=== PATIENT | male | born 1960 | race Caucasian/White ===

== ENCOUNTER 2017-05-06 09:51 | Emergency (ER) | payer OTHER ==
[~2017-05-06] VITALS: Ht 180.3 cm; Wt 110.5 kg
[~2017-05-06 09:51] MED LIST: ACTUNK PO; DBT/5 PO; IBUP-103 PO; METF1000 PO; METF1TAB53 PO
[2017-05-06 10:07] VITALS: TEMP 36.6; Ht 180.3 cm; Wt 110.5 kg
[2017-05-06 10:50] LABS: BASO % 0.5 %; BASO ABS # 0.03 K/uL (0-0.2); COMPLETE YES; EOS % 3.3 %; IG% 0.2 %; LYMPH % 18.4 %; LYMPH ABS # 1.13 K/uL (1.2-3.4); MEAN CELL VOLUME 84.5 fL (80-100); MEAN CORPUSCULAR HEMOGLOBIN 28.7 pg (25-34); MEAN PLATELET VOLUME 10.4 fL (7.4-10.4); MONO % 12.7 %; NEUT % 64.9 %; PLATELET COUNT 158 K/uL (130-400); RED BLOOD COUNT 4.14 M/uL (4.7-6.1); WHITE BLOOD COUNT 6.14 K/uL (4.8-10.8)
[2017-05-06 11:04] LABS: PARTIAL THROMBOPLASTIN RATIO 0.9; PROTHROMBIN TIME (PATIENT) 10.6 SECONDS (9.0-12.0)
[2017-05-06] MEDS ORDERED: METF-841 PO (11:13)
[2017-05-06] MEDS ORDERED: AMR2 PO (11:13)
[2017-05-06] MEDS ORDERED: NTRGSL/4 UT (11:13)
[2017-05-06] MEDS ORDERED: ATOR-24 PO (11:13)
[2017-05-06] MEDS ORDERED: CLOP1TAB15 PO (11:13)
[2017-05-06] MEDS ORDERED: METO1TAB66 PO (11:13)
[2017-05-06] MEDS ORDERED: LISI-725 PO (11:13)
[2017-05-06] MEDS ORDERED: ASPI81TA28 PO (11:13)
[2017-05-06] MEDS ORDERED: PANT40TA PO (11:13)
[2017-05-06] MEDS ORDERED: DOXA-22 PO (11:13)
[2017-05-06] MEDS ORDERED: FURO-85 PO (11:13)
[2017-05-06 11:18] LABS: BUN/CREATININE RATIO 15.4 (10-20); CALCIUM 9.4 mg/dl (8.5-10.1); CREATININE 1.6 mg/dl (0.60-1.40); POTASSIUM 4.2 mmol/L (3.5-5.1)
--- NOTE | 2017-05-06 13:01 | DIAGNOSTIC IMAGING REPORT ---
RIGHT LOWER EXTREMITY VENOUS DOPPLER CLINICAL HISTORY: Right leg edema and swelling. COMPARISON STUDY: No previous studies for comparison. TECHNIQUE: Sonography of the deep venous system of the right lower extremity was performed. Compression and augmentation were evaluated. FINDINGS: The common femoral, superficial femoral and popliteal veins were compressible. Augmentation was normal. Flow was shown within the deep calf vessels. Note was made of a prominent 4.1 x 1.3 x 2.2 cm right groin node. This node is elongated and contains a fatty hilum. This is likely benign. IMPRESSION: 1. No evidence of deep venous thrombus within the right lower extremity. 2. Prominent right inguinal lymph node which has benign imaging characteristics. Electronically signed by: Jeevan Workman M.D. 05/06/2017 1:00 PM Dictated Date/Time: 05/06/2017 12:58 PM
[2017-05-06] MEDS ORDERED: CEPH500C PO (15:03)
[2017-05-06] MEDS ORDERED: CEPHALEXIN MONOHYDRATE 250 MG CAP PO ONE (15:15)
[2017-05-06 15:22] VITALS: BP 149/74; PULSE 71; O2SAT 96
--- NOTE | 2017-05-06 18:03 | EMERGENCY ROOM VISIT NOTE ---
History First contact with patient: 10:11 Chief Complaint: LEG PAIN,LEG INJURY Stated Complaint: LEG PAIN AND SWELLING AND HEADACHE History of Present Illness The patient is a 56 year old white male who presents to the Emergency Room with multiple complaints. First complaint is of right lower leg swelling and redness that developed overnight. He states he normally has swollen lower extremities. He states the leg was very very tight on and Monday. There was no redness until this morning. He has a distant history of cellulitis in the left leg but none in the right. He also notes a small area of redness on the inner upper thigh. He denies any known injury, insect bite, or rash. He also complains of intermittent dizziness and fatigue. This has been present for several weeks. He notes an intermittent headache that starts in the posterior neck and wraps to the crown of his head. There is a history of headaches but these are of different pattern. He denies any change in vision. The dizziness occurs intermittently and without warning. 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 He also had one episode while walking into the ED earlier today. It is currently resolved. He has a history of 3 previous MIs. He denies any chest pain, shortness of breath, or radiculopathy to the arm. He was at [facility] on for evaluation of his symptoms, but states they did not do much of a workup. He states his right leg was ignored. He states they did do a CAT scan of his abdomen because he had flank pain. The CT was reportedly normal. He also states that blood work was done and it was noticed that he had some renal insufficiency. He is a diabetic. He has not seen his PCP. His accompanies him today. Review of Systems REVIEW OF SYSTEM: HEENT: No visual problems, hearing loss, or tinnitus. There is no difficulty swallowing and no oral lesions are present. LYMPH: No adenopathy. PULMONARY: No cough, shortness of breath, sputum production or hemoptysis. CARDIOVASCULAR: No chest pain, palpitations, shortness of breath or peripheral edema. GASTROINTESTINAL: No diarrhea, constipation, nausea, vomiting, or abdominal pain. GENITOURINARY: No dysuria, frequency, urgency or nocturia. NEUROLOGIC: No weakness, muscle tenderness, epilepsy or history of neurological problems. MUSCULOSKELETAL: No history of joint tenderness/swelling. No history of arthritis or arthralgias. SKIN: No rashes or lesions. History of cellulitis to the left leg. PSYCHIATRIC: No history of depression or mental illness. ENDOCRINE: No history of thyroid disorders, or abnormal hair growth. Past Medical/Surgical History Previous surgeries: Heart catheterization Medical history: Significant for previous MIs, CAD, history of sinusitis. Family History Noncontributory. Social History Smoking Status: Never Smoker Smokeless Tobacco Use: No Alcohol Use: none Drug Use: none Marital Status: Housing Status: lives with family Occupation Status: employed Current/Historical Medications Scheduled Aspirin (Aspirin Ec), 81 MG PO QAM Atorvastatin (Lipitor), 40 MG PO QPM Cephalexin Monohydrate (Keflex), 500 MG PO QID Clopidogrel (Plavix), 75 MG PO QAM Doxazosin Mesylate (Doxazosin), 4 MG PO QPM Furosemide (Lasix), 60 MG PO QAM Glimepiride (Glimepiride), 2 MG PO BID Lisinopril (Zestril), 20 MG PO BID Metformin HCl (Metformin HCl ER), 1,000 MG PO BID Metoprolol Succinate (Toprol Xl), 50 MG PO QAM Nitroglycerin (Nitrostat), 0.4 MG UT PRN Pantoprazole (Protonix), 40 MG PO QPM Allergies Coded Allergies: Codeine (Verified Allergy, Unknown, ., 01/05/17) Physical Exam Vital Signs Date Time Temp Pulse Resp B/P (MAP) Pulse Ox O2 Delivery O2 Flow Rate FiO2 05/06/17 15:22 71 16 149/74 96 05/06/17 14:34 60 16 169/75 95 Room Air 05/06/17 13:07 60 05/06/17 12:13 59 18 145/75 95 Room Air 05/06/17 10:43 61 05/06/17 10:42 61 16 152/86 95 Room Air 05/06/17 10:07 36.6 67 18 166/88 96 Room Air Pain Rating (0-10): 6.0 Physical Exam Gen.: Well-developed, well-nourished, middle-aged white male, who looks older than his stated age. Sitting on a bed. Alert and oriented. Skin:Warm and dry with good turgor. He appears mildly pale. No ecchymosis. There is erythema and a few punctate petechial areas on his right lower leg. It extends from his ankle to his knee. It extends just proximal to the knee on the medial aspect. Moderate warmth. Mild tender to touch. No palpable cord. The patient is not diaphoretic. No abrasions. No visible open areas on the lower leg. 2+ peripheral edema in the right leg, 1+ peripheral edema in the left leg. HEENT: Normocephalic atraumatic. Eyes PERRLA, EOMI. No conjunctiva or scleral injection. Ears TMs intact bilaterally with good light reflexes. No erythema or bulging. No hemotympanum. Canals are patent. Nares patent bilaterally without turbinate enlargement. No significant drainage. No epistaxis. Heart: Heart RRR. No MGR. Peripheral pulses are 1+ in the ankles. Lungs: Lungs are clear to auscultation. No crackles rhonchi or wheezing. Good air movement. The patient is able to take a deep breath. Abdomen: Abdomen was inspected, auscultated, and palpated. Bowel sounds present x 4. Soft, nontender to palpation. Musculoskeletal: Patient has discomfort with palpation over the trapezius muscles bilaterally. No pain with palpation over his cervical spine or thoracic spine. Intact range of motion for rotation as well as lateral flexion to the neck. Triggerpoints are palpable in the left trapezius. No triggerpoints in the right trapezius. Lower extremities have intact motion at the hips, knees, and ankles. Neurologic: Cranial nerves II through XII are intact. Negative Hallpike maneuver. Normal Ector testing. Gross sensation is intact across both lower extremities by soft touch. Medical Decision & Procedures ER Provider Diagnostic Interpretation: Ultrasound obtained today of the right lower extremity was read by radiology as negative for DVT. There is some lymph node enlargement proximally. EKG obtained today shows a normal sinus rhythm with a rate of 60. No acute ST or T-wave changes. This was reviewed with Dr. lacey. Laboratory Results 05/06/17 10:35 Red Blood Count 4.14, Mean Corpuscular Volume 84.5, Mean Corpuscular Hemoglobin 28.7, Mean Corpuscular Hemoglobin Concent 34.0, Mean Platelet Volume 10.4, Neutrophils (%) (Auto) 64.9, Lymphocytes (%) (Auto) 18.4, Monocytes (%) (Auto) 12.7, Eosinophils (%) (Auto) 3.3, Basophils (%) (Auto) 0.5, Neutrophils # (Auto ) 3.99, Lymphocytes # (Auto) 1.13, Monocytes # (Auto) 0.78, Eosinophils # (Auto ) 0.20, Basophils # (Auto) 0.03 05/06/17 10:35 Test 05/06/17 10:35 White Blood Count 6.14 K/uL (4.8-10.8) Red Blood Count 4.14 M/uL (4.7-6.1) Hemoglobin 11.9 g/dL (14.0-18.0) Hematocrit 35.0 % (42-52) Mean Corpuscular Volume 84.5 fL (80-100) Mean Corpuscular Hemoglobin 28.7 pg (25-34) Mean Corpuscular Hemoglobin Concent 34.0 g/dl (32-36) Platelet Count 158 K/uL (130-400) Mean Platelet Volume 10.4 fL (7.4-10.4) Neutrophils (%) (Auto) 64.9 % Lymphocytes (%) (Auto) 18.4 % Monocytes (%) (Auto) 12.7 % Eosinophils (%) (Auto) 3.3 % Basophils (%) (Auto) 0.5 % Neutrophils # (Auto) 3.99 K/uL (1.4-6.5) Lymphocytes # (Auto) 1.13 K/uL (1.2-3.4) Monocytes # (Auto) 0.78 K/uL (0.11-0.59) Eosinophils # (Auto) 0.20 K/uL (0-0.5) Basophils # (Auto) 0.03 K/uL (0-0.2) RDW Standard Deviation 38.8 fL (36.4-46.3) RDW Coefficient of Variation 12.7 % (11.5-14.5) Immature Granulocyte % (Auto) 0.2 % Immature Granulocyte # (Auto) 0.01 K/uL (0.00-0.02) Prothrombin Time 10.6 SECONDS (9.0-12.0) Prothromb Time International Ratio 1.0 (0.9-1.1) Activated Partial Thromboplast Time 24.6 SECONDS (21.0-31.0) Partial Thromboplastin Ratio 0.9 Anion Gap 4.0 mmol/L (3-11) Est Creatinine Clear Calc Drug Dose 64.4 ml/min Estimated GFR () 54.6 Estimated GFR (Non- 47.1 BUN/Creatinine Ratio 15.4 (10-20) Calcium Level 9.4 mg/dl (8.5-10.1) Troponin I 0.027 ng/ml (0-0.045) CBC, PT/INR, PRP, and troponin were obtained. Troponin is normal. Mild elevation in BUN and creatinine at 25 and 1.6. Mild anemia with an H&H of 11.9 and 35. Medications Administered Medications (Trade) Dose Ordered Sig/Didi Route Start Time Stop Time Status Last Admin Dose Admin Cephalexin Monohydrate (Keflex Cap) 500 mg NOW ONCE PO 05/06/17 15:15 05/06/17 15:16 DC 05/06/17 15:14 500 MG Keflex 500 mg by mouth ED Course Patient was educated regarding today's findings. Conservative care measures were discussed. IV was established. Labs were obtained. EKG was obtained. Ultrasound was also obtained to rule out DVT. This was read by radiology as normal. Given his redness, swelling, and discomfort but normal ultrasound, he was advised the cellulitis is the most likely diagnosis. Because of this, he was started on Keflex 500 mg 4 times a day 7 days. If symptoms are not improving over the first few days, or if he develops a fever or the redness increases, he should return immediately for IV therapy and admission. I did place him in a compressive stocking to assist with edema control. Possibility of his dizziness being related to arrhythmia, anemia, dehydration, or electrolyte abnormality was discussed. He does have some renal insufficiency which according to him is new. I would like him to follow-up with his PCP for a nephrology referral. He did not have any abnormal response to the Hallpike or Ector testing. I do not think he requires urgent CT imaging of his head or neck, but may elect to have these done in the future. He was instructed to return to the ED for any acute worsening of any of his symptoms. Patient was seen in conjunction with Dr. Lacey, who also evaluated the patient and concurred with today's diagnosis and treatment plan. Medical Decision Possibility of cellulitis, DVT, CVA, intracranial bleed, migraine headache, tension headache, cervical spine arthritis, degenerative disc disease, acute SC , CAD, benign positional vertigo, inner ear infection, and Mnire's disease were all considered. Impression Primary Impression: Neck pain, bilateral Additional Impressions: Cellulitis of right lower leg intermittent dizziness Departure Information Dispostion Home / Self-Care Condition GOOD Prescriptions Cephalexin Monohydrate (Keflex) 500 Mg Cap 500 MG PO QID, #28 CAP Prov: Kade Gracia,P.A. 05/06/17 Forms HOME CARE DOCUMENTATION FORM, MOTRIN USE, TYLENOL USE, IMPORTANT VISIT INFORMATION Patient Instructions Cellulitis - [facility] Additional Instructions Keflex one pill 4 times a day 7 days Return to the ED for any acute worsening redness, streaking, or fever Elevate the leg to reduce pain and swelling Use a compression stocking to improve swelling follow-up with your PCP for further workup of your dizziness and headaches take a multivitamin with iron daily to improve your anemia Problem Qualifiers
== END 2017-05-06 15:22 | disposition home or self-care (01) ==
LOC: C.EDB 09:53
DX: M54.2 Cervicalgia (principal); L03.115 Cellulitis of right lower limb; R42 Dizziness and giddiness; I25.10 Atherosclerotic heart disease of native coronary artery without angina pectoris; I25.2 Old myocardial infarction; Z79.82 Long term (current) use of aspirin; Z79.02 Long term (current) use of antithrombotics/antiplatelets; Z79.899 Other long term (current) drug therapy

== ENCOUNTER 2017-05-26 19:57 | Observation (INO) | payer OTHER ==
[~2017-05-26] VITALS: Ht 180.3 cm; Wt 110.9 kg
[~2017-05-26 19:57] MED LIST changes: -ACTUNK PO; +AMR2 PO; +ASPI81TA28 PO; +ATOR-24 PO; +CEPH500C PO; +CLOP1TAB15 PO; -DBT/5 PO; +DOXA-22 PO; +FURO-85 PO; -IBUP-103 PO; +LISI-725 PO; +METF-841 PO; -METF1000 PO; -METF1TAB53 PO; +METO1TAB66 PO; +NTRGSL/4 UT; +PANT40TA PO
[2017-05-26 20:53] LABS: BASO % 0.7 %; BASO ABS # 0.03 K/uL (0-0.2); COMPLETE YES; EOS % 5.6 %; HEMATOCRIT 34.8 % (42-52); IG% 0.2 %; LYMPH % 34.4 %; LYMPH ABS # 1.53 K/uL (1.2-3.4); MEAN CELL VOLUME 85.9 fL (80-100); MEAN CORPUSCULAR HEMOGLOBIN 28.6 pg (25-34); MEAN CORPUSCULAR HGB CONC 33.3 g/dl (32-36); MEAN PLATELET VOLUME 10.5 fL (7.4-10.4); MONO % 10.1 %; PLATELET COUNT 176 K/uL (130-400); RED BLOOD COUNT 4.05 M/uL (4.7-6.1); WHITE BLOOD COUNT 4.45 K/uL (4.8-10.8)
--- NOTE | 2017-05-26 21:00 | DIAGNOSTIC IMAGING REPORT ---
CHEST ONE VIEW PORTABLE CLINICAL HISTORY: Atypical chest pain COMPARISON STUDY: No previous studies for comparison. FINDINGS: The heart is enlarged. There is no overt failure. There are no pleural effusions. There are atelectatic changes present the right lung base and left midlung zone.[ IMPRESSION: Cardiomegaly and mild bilateral atelectatic change. No evidence of failure. No evidence of lobar consolidation Electronically signed by: Nehemiah Woods M.D. 05/26/2017 8:58 PM Dictated Date/Time: 05/26/2017 8:58 PM
[2017-05-26 21:09] LABS: BUN/CREATININE RATIO 21.4 (10-20); CALCIUM 8.7 mg/dl (8.5-10.1); CREATININE 1.8 mg/dl (0.60-1.40); POTASSIUM 4.2 mmol/L (3.5-5.1)
[2017-05-26 21:10] LABS: POINT OF CARE TROPONIN I < 0.030 ng/ml (0-0.045)
[2017-05-26 21:15] LABS: ALB/GLOB RATIO 1.1 (0.9-2); CKMB/CK RATIO 1.2 (0-3.0)
[2017-05-26] MEDS ORDERED: GI COCKTAIL PO STA (22:42)
[2017-05-26] MEDS ORDERED: ALUMINUM/MAGNESIUM SUSP 30 ML UDC ONE (22:52)
[2017-05-26] MEDS ORDERED: LIDOCAINE HCL 2% VISC SOLN 20 ML UDC ONE (22:52)
--- NOTE | 2017-05-26 23:49 | EMERGENCY ROOM VISIT NOTE ---
History First contact with patient: 20:32 Chief Complaint: CHEST PAIN Stated Complaint: CHEST/LEG PAIN Nursing Triage Summary: pt ambulatory to triage with the c/o chest was hurting today that radiated through into back, hx of stent and ablasion. History of Present Illness The patient is a 56 year old male who presents to the Emergency Room with complaints of chest pain. The patient states that a few hours ago, he developed chest pain which radiated through to the back. He also reports that he had shortness of breath at times. The chest pain was intermittent for a few hours and has improved at this time. The patient also notes that he was recently treated for a cellulitis in his right leg. He has had increased swelling in both legs as well as numbness and at times burning. He is a diabetic but denies any history of diagnosed neuropathy. The patient has extensive cardiac history including 3 MIs and stents. He denies any history of blood clots. He is not a smoker. He does report a history of hypertension. Review of Systems A complete 10 point review of systems was reviewed with the patient with pertinent positives and negatives as per history of present illness. All else were negative. Social History Smoking Status: Never Smoker Alcohol Use: none Drug Use: none Marital Status: Housing Status: lives with family Occupation Status: employed Current/Historical Medications Scheduled Aspirin (Aspirin Ec), 81 MG PO QAM Atorvastatin (Lipitor), 40 MG PO QPM Clopidogrel (Plavix), 75 MG PO QAM Doxazosin Mesylate (Doxazosin), 4 MG PO QPM Furosemide (Lasix), 60 MG PO QAM Glimepiride (Glimepiride), 2 MG PO BID Lisinopril (Zestril), 20 MG PO BID Metformin HCl (Metformin HCl ER), 1,000 MG PO BID Metoprolol Succinate (Toprol Xl), 50 MG PO QAM Nitroglycerin (Nitrostat), 0.4 MG UT PRN Pantoprazole (Protonix), 40 MG PO QPM Physical Exam Vital Signs Date Time Temp Pulse Resp B/P (MAP) Pulse Ox O2 Delivery O2 Flow Rate FiO2 05/26/17 22:15 68 16 145/83 98 Room Air 05/26/17 20:53 66 18 158/85 95 Room Air 05/26/17 20:29 65 05/26/17 19:59 36.6 74 18 170/86 95 Room Air Physical Exam VITALS: Vitals are noted on the nurse's note and reviewed by myself. Vital signs stable. GENERAL: This is a 56-year-old male, in no acute distress, nondiaphoretic, well- developed well-nourished. HEENT: Normocephalic. PERRLA. EOMI. Mucous membranes moist. Neck is supple without nuchal rigidity. HEART: Regular rate and rhythm without murmurs gallops or rubs. LUNGS: Clear to auscultation bilaterally without wheezes, rales or rhonchi. No retractions or accessory muscle use. EXTREMITIES: 2+ pitting edema bilaterally. No erythema or warmth of either leg. NEURO: Patient was alert and oriented to person place and time. Medical Decision & Procedures ER Provider Diagnostic Interpretation: CHEST ONE VIEW PORTABLE FINDINGS: The heart is enlarged. There is no overt failure. There are no pleural effusions. There are atelectatic changes present the right lung base and left midlung zone.[ IMPRESSION: Cardiomegaly and mild bilateral atelectatic change. No evidence of failure. No evidence of lobar consolidation US VENOUS BILATERAL LOWER EXTREMITIES: No evidence of DVT in the bilateral lower extremities. Radiologist: Flora Vasquez MD Laboratory Results 05/26/17 20:25 Red Blood Count 4.05, Mean Corpuscular Volume 85.9, Mean Corpuscular Hemoglobin 28.6, Mean Corpuscular Hemoglobin Concent 33.3, Mean Platelet Volume 10.5, Neutrophils (%) (Auto) 49.0, Lymphocytes (%) (Auto) 34.4, Monocytes (%) (Auto) 10.1, Eosinophils (%) (Auto) 5.6, Basophils (%) (Auto) 0.7, Neutrophils # (Auto ) 2.18, Lymphocytes # (Auto) 1.53, Monocytes # (Auto) 0.45, Eosinophils # (Auto ) 0.25, Basophils # (Auto) 0.03 05/26/17 20:25 Test 05/26/17 20:25 05/26/17 20:50 White Blood Count 4.45 K/uL (4.8-10.8) Red Blood Count 4.05 M/uL (4.7-6.1) Hemoglobin 11.6 g/dL (14.0-18.0) Hematocrit 34.8 % (42-52) Mean Corpuscular Volume 85.9 fL (80-100) Mean Corpuscular Hemoglobin 28.6 pg (25-34) Mean Corpuscular Hemoglobin Concent 33.3 g/dl (32-36) Platelet Count 176 K/uL (130-400) Mean Platelet Volume 10.5 fL (7.4-10.4) Neutrophils (%) (Auto) 49.0 % Lymphocytes (%) (Auto) 34.4 % Monocytes (%) (Auto) 10.1 % Eosinophils (%) (Auto) 5.6 % Basophils (%) (Auto) 0.7 % Neutrophils # (Auto) 2.18 K/uL (1.4-6.5) Lymphocytes # (Auto) 1.53 K/uL (1.2-3.4) Monocytes # (Auto) 0.45 K/uL (0.11-0.59) Eosinophils # (Auto) 0.25 K/uL (0-0.5) Basophils # (Auto) 0.03 K/uL (0-0.2) RDW Standard Deviation 39.5 fL (36.4-46.3) RDW Coefficient of Variation 12.6 % (11.5-14.5) Immature Granulocyte % (Auto) 0.2 % Immature Granulocyte # (Auto) 0.01 K/uL (0.00-0.02) Anion Gap 6.0 mmol/L (3-11) Est Creatinine Clear Calc Drug Dose 57.7 ml/min Estimated GFR () 47.4 Estimated GFR (Non- 40.9 BUN/Creatinine Ratio 21.4 (10-20) Calcium Level 8.7 mg/dl (8.5-10.1) Total Bilirubin 0.3 mg/dl (0.2-1) Aspartate Amino Transf (AST/SGOT) 16 U/L (15-37) Alanine Aminotransferase (ALT/SGPT) 30 U/L (12-78) Alkaline Phosphatase 75 U/L (45-117) Total Creatine Kinase 129 U/L (39-308) Creatine Kinase MB 1.6 ng/ml (0.5-3.6) Creatine Kinase MB Ratio 1.2 (0-3.0) Total Protein 6.8 gm/dl (6.4-8.2) Albumin 3.6 gm/dl (3.4-5.0) Globulin 3.2 gm/dl (2.5-4.0) Albumin/Globulin Ratio 1.1 (0.9-2) Bedside D-Dimer > 450 ng/mlFEU (0-450) Bedside Troponin I < 0.030 ng/ml (0-0.045) Medications Administered Medications (Trade) Dose Ordered Sig/Didi Route Start Time Stop Time Status Last Admin Dose Admin Miscellaneous Medication (Gi Cocktail) 24 ml NOW STAT PO 05/26/17 22:42 05/26/17 22:43 DC 05/26/17 22:42 24 ML ECG Rate (beats per minute): 67 Rhythm: normal sinus Findings: no acute ischemic change, no ectopy ED Course The patient was evaluated as above. Labs were drawn and IV access was obtained. Findings were discussed with the patient. He will be admitted/observed for further cardiac workup. Patient was complaining of some burning in the chest and will be given a GI cocktail. Case was discussed with the [facility]ist, Dr. Siegel. They agreed to evaluate the patient for admission. Medical Decision Differential diagnosis includes acute coronary syndrome, pulmonary embolism, pneumothorax, pericarditis, myocarditis, endocarditis, anxiety, musculoskeletal pain, GERD, costochondritis, pneumonia, among others. The patient is a 56-year-old male who presents today complaining of chest pain and shortness of breath which has resolved. Labs revealed no leukocytosis, anemia or concerning electrolyte abnormalities. Creatinine is elevated at 1.8, which is fairly new for the patient. Troponin was not elevated. D-dimer was found to be slightly elevated. Ultrasound of the legs was ordered and found to be negative. The patient certainly does have a significant cardiac history and I am concerned that his chest pain today could be due to a cardiac cause. Given this and elevated d-dimer, I do feel he warrants admission/observation for further workup. Patient was admitted to the [facility] service. The patient's case was reviewed with Dr. Ferris, ED attending physician, who agreed with my assessment and treatment plan. Medication Reconcilliation Current Medication List: was personally reviewed by me Blood Pressure Screening Patient's blood pressure: Elevated blood pressure Blood pressure disposition: Referred to PCP Impression Primary Impression: Substernal precordial chest pain Departure Information Referrals Carolin Olmstead M.D. (PCP) Patient Instructions [facility]
[2017-05-27] MEDS ORDERED: POLYETHYLENE (MIRALAX) 17 GM PACK PO PRN (00:30)
[2017-05-27] MEDS ORDERED: NITROGLYCERIN 0.4 MG SL PER TAB CHARGE SL PRN (00:30)
[2017-05-27] MEDS ORDERED: NITROGLYCERIN 0.4 MG SL PER TAB CHARGE UT SCH (00:30)
[2017-05-27] MEDS ORDERED: ACETAMINOPHEN 325 MG TAB PO PRN (00:30)
[2017-05-27] MEDS ORDERED: ONDANSETRON INJ 2 MG/ML 2 ML VIAL IV PRN (00:30)
--- NOTE | 2017-05-27 01:08 | History and Physical ---
History & Physical Date & Time of Service: May 27, 2017 at 00:49 Chief Complaint: Chest/Leg Pain Primary Care Physician: Carolin Olmstead M.D. History of Present Illness Source: patient, spouse 56-year-old male with a past medical history of hypertension, diabetes, coronary artery disease status post stent placement, atrial fibrillation status post ablation presented to the ER with complaints of chest pain that radiated to the back which started this afternoon. He denies any shortness of breath, palpitations, nausea, vomiting or diaphoresis. He states that he usually feels dizzy but doesn't have any dizziness currently. He complains of numbness and tingling and burning pain in both his feet. He also states that he has pain in both his legs if he walks long distances, he is scheduled for an arterial Doppler next month. Nonsmoker, denies any long haul travels and family history of DVT Past Medical/Surgical History Hypertension, diabetes, coronary artery disease Social History Smoking Status: Never Smoker Drug Use: none Marital Status: Housing status: lives with friends Occupational Status: employed Allergies Coded Allergies: Codeine (Verified Allergy, Unknown, ., 05/26/17) Home Medications Scheduled Aspirin (Aspirin Ec), 81 MG PO QAM Atorvastatin (Lipitor), 40 MG PO QPM Clopidogrel (Plavix), 75 MG PO QAM Doxazosin Mesylate (Doxazosin), 4 MG PO QPM Furosemide (Lasix), 60 MG PO QAM Glimepiride (Glimepiride), 2 MG PO BID Lisinopril (Zestril), 20 MG PO BID Metformin HCl (Metformin HCl ER), 1,000 MG PO BID Metoprolol Succinate (Toprol Xl), 50 MG PO QAM Nitroglycerin (Nitrostat), 0.4 MG UT PRN Pantoprazole (Protonix), 40 MG PO QPM Review of Systems Constitutional: No fever, No chills Eyes: No worsening of vision ENT: No hearing loss Respiratory: No cough, No shortness of breath Cardiovascular: + chest pain, No orthopnea, No palpitations Abdomen: No pain, No nausea, No vomiting, No diarrhea Musculoskeletal: No joint pain Genitourinary - Male: No hematuria, No dysuria Neurologic: + numbness/tingling (in bilateral feet), No memory loss Psychiatric: No depression symptoms Endocrine: No fatigue Hematologic / Lymphatic: No abnormal bleeding/bruising Physical Exam Vital Signs Date Time Temp Pulse Resp B/P (MAP) Pulse Ox O2 Delivery O2 Flow Rate FiO2 05/26/17 22:15 68 16 145/83 98 Room Air 05/26/17 20:53 66 18 158/85 95 Room Air 05/26/17 20:29 65 05/26/17 19:59 36.6 74 18 170/86 95 Room Air General Appearance: WD/WN, no apparent distress Eyes: normal inspection ENT: normal ENT inspection, hearing grossly normal Neck: supple Respiratory/Chest: lungs clear, normal breath sounds, no respiratory distress, no accessory muscle use Cardiovascular: regular rate, rhythm Abdomen/GI: soft Extremities/Musculoskelatal: + pedal edema (3+) Neurologic/Psych: alert, normal mood/affect, oriented x 3 Skin: normal color Diagnostics Laboratory Results Results Past 24 Hours Test 05/26/17 20:25 05/26/17 20:50 Range/Units White Blood Count 4.45 4.8-10.8 K/uL Red Blood Count 4.05 4.7-6.1 M/uL Hemoglobin 11.6 14.0-18.0 g/dL Hematocrit 34.8 42-52 % Mean Corpuscular Volume 85.9 80-100 fL Mean Corpuscular Hemoglobin 28.6 25-34 pg Mean Corpuscular Hemoglobin Concent 33.3 32-36 g/dl Platelet Count 176 130-400 K/uL Mean Platelet Volume 10.5 7.4-10.4 fL Neutrophils (%) (Auto) 49.0 % Lymphocytes (%) (Auto) 34.4 % Monocytes (%) (Auto) 10.1 % Eosinophils (%) (Auto) 5.6 % Basophils (%) (Auto) 0.7 % Neutrophils # (Auto) 2.18 1.4-6.5 K/uL Lymphocytes # (Auto) 1.53 1.2-3.4 K/uL Monocytes # (Auto) 0.45 0.11-0.59 K/uL Eosinophils # (Auto) 0.25 0-0.5 K/uL Basophils # (Auto) 0.03 0-0.2 K/uL RDW Standard Deviation 39.5 36.4-46.3 fL RDW Coefficient of Variation 12.6 11.5-14.5 % Immature Granulocyte % (Auto) 0.2 % Immature Granulocyte # (Auto) 0.01 0.00-0.02 K/uL Sodium Level 140 136-145 mmol/L Potassium Level 4.2 3.5-5.1 mmol/L Chloride Level 106 98-107 mmol/L Carbon Dioxide Level 28 21-32 mmol/L Anion Gap 6.0 3-11 mmol/L Blood Urea Nitrogen 39 7-18 mg/dl Creatinine 1.80 0.60-1.40 mg/dl Est Creatinine Clear Calc Drug Dose 57.7 ml/min Estimated GFR () 47.4 Estimated GFR (Non- 40.9 BUN/Creatinine Ratio 21.4 10-20 Random Glucose 287 70-99 mg/dl Calcium Level 8.7 8.5-10.1 mg/dl Total Bilirubin 0.3 0.2-1 mg/dl Aspartate Amino Transf (AST/SGOT) 16 15-37 U/L Alanine Aminotransferase (ALT/SGPT) 30 12-78 U/L Alkaline Phosphatase 75 45-117 U/L Total Creatine Kinase 129 39-308 U/L Creatine Kinase MB 1.6 0.5-3.6 ng/ml Creatine Kinase MB Ratio 1.2 0-3.0 Total Protein 6.8 6.4-8.2 gm/dl Albumin 3.6 3.4-5.0 gm/dl Globulin 3.2 2.5-4.0 gm/dl Albumin/Globulin Ratio 1.1 0.9-2 Bedside D-Dimer > 450 0-450 ng/mlFEU Bedside Troponin I < 0.030 0-0.045 ng/ml Diagnostic Radiology CHEST ONE VIEW PORTABLE CLINICAL HISTORY: Atypical chest pain COMPARISON STUDY: No previous studies for comparison. FINDINGS: The heart is enlarged. There is no overt failure. There are no pleural effusions. There are atelectatic changes present the right lung base and left midlung zone.[ IMPRESSION: Cardiomegaly and mild bilateral atelectatic change. No evidence of failure. No evidence of lobar consolidation Electronically signed by: Nehemiah Woods M.D. 05/26/2017 8:58 PM Dictated Date/Time: 05/26/2017 8:58 PM Impression Assessment and Plan 56-year-old male with a past medical history of hypertension, diabetes, coronary artery disease status post stent placement, atrial fibrillation status post ablation presented to the ER with complaints of chest pain that radiated to the back which started this afternoon. Precordial chest pain/history of coronary artery disease with stents: - EKG: Normal sinus at 67 bpm - Initial troponin less than 0.030, trend every 8 hours - Chest x-ray: Cardiomegaly and mild bilateral atelectatic change. No evidence of failure. No evidence of lobar consolidation - Elevated d-dimer, negative Dopplers. - Continue aspirin, Plavix, metoprolol, lisinopril, atorvastatin Acute kidney injury: Likely secondary to volume depletion - Creatinine at 1.8 - Continue IV fluids and monitor creatinine Diabetes: - Held home medications - Hemoglobin A1c ordered - Insulin sliding-scale Hypertension: - Continue lisinopril Burning sensation in bilateral feet: - Likely secondary to peripheral neuropathy - B12, folic acid, hemoglobin A1c pending Restless legs: - Undiagnosed - start on mag oxide and calcium at bedtime Claudication likely secondary to Peripheral arterial disease: - Scheduled for outpatient arterial Doppler DVT prophylaxis: SCDs Full code Disposition: Admitted to telemetry Resident Physician Supervision Note: I interviewed and examined the patient. Discussed with Dr. Bedolla and agree with findings and plan as documented in the note. Any exceptions or clarifications are listed here: None Documented By: Girma Rios chest pain - substernal striaght through to back, doesn't feel like prior cardiac sx. leg burning - new is only since cellulitis a few weeks ago - actually came to ER w concern of ?recurrent cellulitis. vaguely relates foot burning ongoing longer than that, but new/worse is leg vitals noted nad breathing unlabored reg nor/m/g, lungs cta b/l no r/r/w good effort. legs w stigmata of venous insufficiecy and R sl greater than L ~1+ edema, tender, no erythema chest pain - resolved, sounds very atypical for cardiac, different than his prior cardiac sx, and appearing by far most c/w GI. r/o [place], otherwise at this point without other worrisome sx (no exertional sx, no worsening with exertion/ fatigue) leg burning -suspect since he notes worsening just since cellulitis the acute burning is more skin-stretch mediated from worsening of venous stasis. baseline foot burning does sound c/w neuropathy and w/u as above, but what brought him to ER, unless neuropathy made a sudden worsening, sounds more venous stasis and skin stretching mediated venous stasis -see above, educated extensively on this, compression, movement, elevation, etc. pt and expressed understanding DVT proph - heparin SQ (SCDs will be useful for venous stasis, but not likely to help much for VTE prevention) CKD ~stage 3 - sl worse than baseline. IVF, repeat BMP as above Level of Care Telemetry Resuscitation Status FULL RESUSCITATION VTE Prophylaxis VTE Risk Assessment Done? Y/N: Yes Risk Level: Moderate Given or contraindicated: SCD's Resident Tracking Resident Involvement: Resident Care Provided Care Provided: Adult Hospital Medicine
[2017-05-27] MEDS ORDERED: IV FLUIDS COMPLETED PRN (01:45)
[2017-05-27 02:20] VITALS: BP 159/89; PULSE 67; TEMP 37.1; O2SAT 93; Ht 180.3 cm; Wt 110.9 kg
[2017-05-27 03:09] VITALS: O2SAT 93
[2017-05-27] MEDS ORDERED: MAGNESIUM OXIDE 400 MG TAB PO ONE (03:15)
[2017-05-27] MEDS ORDERED: CALCIUM CITRATE 950 MG TAB PO ONE (03:15)
[2017-05-27] MEDS ORDERED: GLUCOSE 40% GEL 15 GM TUBE PO PRN (03:30)
[2017-05-27] MEDS ORDERED: GLUCOSE 10 TABS/TUBE PO PRN (03:30)
[2017-05-27] MEDS ORDERED: DEXTROSE 50% 50 ML SYR IV PRN (03:30)
[2017-05-27] MEDS ORDERED: GLUCAGON FOR INJ 1 MG VIAL SQ PRN (03:30)
[2017-05-27] MEDS: SODIUM CHLORIDE 0.9% 1000ML 1,000 ML IV SCH ×2 (03:31→10:41)
[2017-05-27] MEDS ORDERED: NURSING VERBAL MED ORDER ONE ×2 (04:30→12:15)
[2017-05-27] MEDS: INSULIN ASPART 100 UNITS/ML 3 ML PEN SC SCH ×2 (04:36→06:38)
--- NOTE | 2017-05-27 06:40 | DIAGNOSTIC IMAGING REPORT ---
BILATERAL LOWER EXTREMITY VENOUS DOPPLER CLINICAL HISTORY: Elevated d-dimer. Leg swelling. COMPARISON STUDY: Right lower extremity venous Doppler May 06, 2017 and left lower extremity venous Doppler June 08, 2012. TECHNIQUE: Sonography of the deep venous system of the bilateral lower extremities was performed. Compression and augmentation were evaluated. FINDINGS: The bilateral common femoral, superficial femoral and popliteal veins were compressible. Augmentation was normal. Flow was shown within the deep calf vessels. IMPRESSION: No evidence of deep venous thrombus within the bilateral lower extremities. Electronically signed by: Jeevan Workman M.D. 05/27/2017 6:38 AM Dictated Date/Time: 05/27/2017 6:37 AM
[2017-05-27 06:41] LABS: HEMATOCRIT 32.7 % (42-52); MEAN CELL VOLUME 85.6 fL (80-100); MEAN CORPUSCULAR HEMOGLOBIN 29.1 pg (25-34); MEAN CORPUSCULAR HGB CONC 33.9 g/dl (32-36); MEAN PLATELET VOLUME 10.1 fL (7.4-10.4); PLATELET COUNT 154 K/uL (130-400); RED BLOOD COUNT 3.82 M/uL (4.7-6.1); WHITE BLOOD COUNT 3.98 K/uL (4.8-10.8)
[2017-05-27 07:08] LABS: CALCIUM 8.4 mg/dl (8.5-10.1); CREATININE 1.6 mg/dl (0.60-1.40); POTASSIUM 4.4 mmol/L (3.5-5.1)
[2017-05-27 07:51] LABS: ESTIMATED AVERAGE GLUCOSE 203 mg/dl; HA1C FLAG Normal (Normal)
[2017-05-27 08:06] VITALS: BP 157/82; PULSE 56; TEMP 36.5; O2SAT 95
[2017-05-27] MEDS ORDERED: LISINOPRIL 20 MG TAB PO SCH (09:00)
[2017-05-27] MEDS ORDERED: HEPARIN SOD 5000 UNIT/0.5 ML CARP SQ SCH (09:00)
[2017-05-27] MEDS ORDERED: CLOPIDOGREL BISULFATE 75 MG TAB PO SCH (09:00)
[2017-05-27] MEDS ORDERED: ASPIRIN 81 MG ECTAB PO SCH (09:00)
[2017-05-27] MEDS ORDERED: FUROSEMIDE 20 MG TAB PO SCH (09:00)
[2017-05-27] MEDS ORDERED: METOPROLOL SUCC 50MG EXT REL TAB PO SCH (09:00)
[2017-05-27] MEDS: CALCIUM CITRATE 950 MG TAB PO SCH ×2 (10:40→12:06)
[2017-05-27 10:42] VITALS: BP 142/82; PULSE 50
[2017-05-27 11:00] VITALS: BP 154/85; PULSE 58; TEMP 36.5; O2SAT 95
--- NOTE | 2017-05-27 13:48 | Discharge Instructions ---
Discharge Instructions Date of Service May 27, 2017. Admission Reason for Admission: Substernal Precordial Chest Pain Discharge Discharge Diagnosis / Problem: Atypical chest pain/ Gerd Discharge Goals Goal(s): Improve function Activity Recommendations Activity Limitations: resume your previous activity . Instructions / Follow-Up Instructions / Follow-Up Primary care physician in 1 week Current Hospital Diet Patient's current hospital diet: AHA Diet (Heart Healthy), Diabetes Type 2 Diet Discharge Diet Recommended Diet: AHA Diet (Heart Healthy) Pending Studies Studies pending at discharge: no Laboratory Results Hemoglobin A1c Test 05/27/17 06:28 Range/Units Estimated Average Glucose 203 mg/dl Hemoglobin A1c 8.7 H 4.5-5.6 % Medical Emergencies . Who to Call and When: Medical Emergencies: If at any time you feel your situation is an emergency, please call 911 immediately. . Non-Emergent Contact Non-Emergency issues call your: Primary Care Provider . . "Provider Documentation" section prepared by Raulito Lee. . VTE Core Measure Inpt VTE Proph given/why not?: SCD's
[2017-05-27 14:52] VITALS: BP 154/85; PULSE 58; TEMP 36.5; O2SAT 95
[2017-05-27] MEDS ORDERED: INSULIN ASPART 100 UNITS/ML 3 ML PEN SC SCH (16:30)
--- NOTE | 2017-05-27 20:19 | Discharge Summary ---
Discharge Summary Date of Service May 27, 2017. Discharge Summary Admission Date: May 27, 2017 at 00:55 Discharge Date: May 27, 2017 Discharge Disposition: Home Principal Diagnosis: atypical chest pain Problems/Secondary Diagnoses: Coronary artery disease Poorly controlled diabetes Diabetic neuropathy Hospital Course Patient presented with atypical chest pain which resolved with a GI cocktail. Patient has a history of multiple abnormal stress test, which lead to catheterizations which showed no active disease. Based on the atypical nature of his chest pain and normal cardiac markers he agreed to be discharged to home. Of note his hemoglobin A1c is 8-1/2. He is complaining of neuropathic pain in his lower extremities. 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 Advance care planning was also discussed with the patient and his . Total Time Spent: Greater than 30 minutes This includes examination of the patient, discharge planning, medication reconciliation, and communication with other providers. Discharge Instructions Please refer to the electronic Patient Visit Report (Discharge Instructions) for additional information. Follow-Up Primary care physician in one week
[2017-05-27] MEDS ORDERED: DOXAZosin MESYLATE TAB 4 MG TAB PO SCH (21:00)
[2017-05-27] MEDS ORDERED: ATORVASTATIN 40 MG TAB PO SCH (21:00)
[2017-05-27] MEDS ORDERED: MAGNESIUM OXIDE 400 MG TAB PO SCH (21:00)
[2017-05-27] MEDS ORDERED: PANTOprazole SOD 40 MG TAB PO SCH (21:00)
== END 2017-05-27 16:00 | disposition home or self-care (01) ==
LOC: C.EDB 19:58 → C.MED 05-27 00:55 → ENRESERV 05-27 01:36 → EDBEDREQ 05-27 01:46
PROVIDERS: ADMIT Family Medicine; ATTEND Family Medicine
DX: R07.89 Other chest pain (principal); I25.2 Old myocardial infarction; I25.10 Atherosclerotic heart disease of native coronary artery without angina pectoris; E11.40 Type 2 diabetes mellitus with diabetic neuropathy, unspecified; I10 Essential (primary) hypertension; Z79.84 Long term (current) use of oral hypoglycemic drugs; Z95.5 Presence of coronary angioplasty implant and graft; Z79.82 Long term (current) use of aspirin; Z79.899 Other long term (current) drug therapy